=== PATIENT | female | born 1990 | race American Indian/Alaskan Native ===

== ENCOUNTER 2016-06-12 16:05 | Emergency (ER) | payer MEDICAID ==
[2016-06-12 16:25] VITALS: BMI 25.2
[2016-06-12 16:39] VITALS: TEMP 98.5; O2SAT 100
--- NOTE | 2016-06-12 16:58 | C.PDOC ---
History Of Present Illness Patient is a 25 y/o female, whose PMHx includes HTN, and ovarian cyst, that presents to the ED for evaluation of vaginal bleeding for the past 15 days. Patient also reports associated right flank pain. Patient states that she usually gets cramps during her menstrual period. Denies taking any OTC meds for her symptoms. 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 Otherwise, denies any fever, chills, n/v/d, urinary symptoms, light headedness, dizziness, headache, shortness of breath, or any other associated symptoms at this time. Time Seen by Provider: 06/12/16 16:48 Chief Complaint (Nursing): Abdominal Pain History Per: Patient History/Exam Limitations: no limitations Onset/Duration Of Symptoms: Days (15) Quality Of Discomfort: Cramping, "Pain" Associated Symptoms: denies: Fever, Chills, Constipation, Urinary Symptoms Alleviating Factors: None Recent travel outside of the [place]: No Additional History Per: Patient Abnormal Vaginal Bleeding: Yes Past Medical History Reviewed: Historical Data, Nursing Documentation, Vital Signs Vital Signs: Last Vital Signs Temp 98.5 F 06/12/16 16:29 Pulse 92 H 06/12/16 16:29 Resp 17 06/12/16 16:29 BP 149/104 H 06/12/16 16:29 Pulse Ox 100 06/12/16 18:31 - Medical History PMH: HTN Denies: Depression, Chronic Kidney Disease - [facility] Procedures APPLICATION OF SPLINT (09/19/03) INJECT/INFUSE ELECTROLYT (07/22/14) INJECT/INFUSE NEC (07/22/14) MANUAL ASSIST DELIV NEC (09/18/13) OTHER SKIN & SUBQ I D (08/10/13) Family History: States: Unknown Family Hx - Social History Hx Tobacco Use: No Hx Alcohol Use: No Hx Substance Use: No - Immunization History Hx Tetanus Toxoid Vaccination: No Hx Influenza Vaccination: No Hx Pneumococcal Vaccination: No Review Of Systems Constitutional: Negative for: Fever, Chills Cardiovascular: Negative for: Chest Pain, Light Headedness Respiratory: Negative for: Cough, Shortness of Breath Gastrointestinal: Positive for: Abdominal Pain. Negative for: Nausea, Vomiting , Diarrhea, Constipation Genitourinary: Positive for: Vaginal Bleeding. Negative for: Dysuria, Frequency , Incontinence, Hematuria Musculoskeletal: Positive for: Back Pain (right flank) Skin: Negative for: Rash Neurological: Negative for: Weakness, Numbness, Headache, Dizziness Physical Exam - Physical Exam Appears: Non-toxic, No Acute Distress Skin: Normal Color, Warm, Dry Head: Atraumatic, Normacephalic Eye(s): bilateral: Normal Inspection, EOMI Neck: Normal ROM, Supple Chest: Symmetrical Cardiovascular: Rhythm Regular, No Murmur Respiratory: Normal Breath Sounds, No Rales, No Rhonchi, No Wheezing Gastrointestinal/Abdominal: Bowel Sounds (normal), Soft, No Tenderness, No Distention, No Guarding, No Rebound Back: Normal Inspection, No CVA Tenderness, No Vertebral Tenderness, No Paraspinal Tenderness Extremity: Bilateral: Atraumatic, Normal Color And Temperature, Normal ROM Pulses: Left Radial: Normal Neurological/Psych: Oriented x3, Normal Speech Gait: Steady ED Course And Treatment - Laboratory Results Result Diagrams: 06/12/16 17:49 06/12/16 17:49 Lab Interpretation: No Acute Changes O2 Sat by Pulse Oximetry: 100 (RA) Pulse Ox Interpretation: Normal Progress Note: Labs ordered and reviewed. Medical Decision Making Medical Decision Making: Impression: 25 y.o female with vaginal bleeding for 2 weeks Plan: * CBC * CMP * Offer meds, declines states not severe pain Progress: Prior record shows patient was seen 05/10 for abdominal pain with labs and CT A/ P w IV contrast shows mild mural thickening vs underdistention of large bowel. No associated inflammatory stranding. No obstruction. No cholelithiasis, no ductal dilation Labs reviewed H.H WNL, no acute changes from last ER visit. Upon reevaluation patient is resting comfortably in no acute distress. Patient remained afebrile alert and oriented with stable vital signs during ER evaluation. Patient is hemodynamically stable. Discussed results with patient, and copy of report was provided. Will prescribe Provera. Patient feels comfortable going home and will be discharged. Patient given follow up instructions with ob.hose suspender cutter. Instructed to return to ER if symptoms worsen or new symptoms arise. Disposition Counseled Patient/Family Regarding: Need For Followup, Rx Given - [facility]position [facility] Disposition: HOME/ ROUTINE Disposition Time: 18:33 Condition: STABLE Additional Instructions: Your labs are normal. Please follow up with your cementer machine in few days Take medications as prescribed. Return to the emergency department at any time if symptoms persist or worsen. Prescriptions: MedroxyPROGESTERone [Provera] 1 tab PO DAILY #10 tab Instructions: Dysfunctional Uterine Bleeding (ED) - POA Present On Arrival: None - Clinical Impression Clinical Impression: Menorrhagia with regular cycle - PA / WHITE SPOOLER / Resident Statement MD/DO has reviewed & agrees with the documentation as recorded. - Scribe Statement The provider has reviewed the documentation as recorded by the Camposibmiryam Parekh All medical record entries made by the Quinn were at my direction and personally dictated by me. I have reviewed the chart and agree that the record accurately reflects my personal performance of the history, physical exam, medical decision making, and the department course for this patient. I have also personally directed, reviewed, and agree with the discharge instructions and disposition.
[2016-06-12 17:46] LABS: RBC URINE 11 /hpf (0-3); URINE BACTERIA RARE (<OCC); URINE BILIRUBIN NEGATIVE (NEGATIVE); URINE BLOOD 2+ (NEGATIVE); URINE COLOR Yellow (YELLOW); URINE GLUCOSE (UA) NORMAL (Normal); URINE KETONE NEGATIVE (NEGATIVE); URINE LEUKOCYTE ESTERASE NEG Leu/uL (Negative); URINE PROTEIN NEGATIVE (NEGATIVE); URINE UROBILINOGEN NORMAL mg/dL (0.2-1.0); WBC URINE 1 /hpf (0-5)
[2016-06-12 17:55] LABS: BASO % 0.8 % (0.0-2.0); EOS % 0.6 % (0.0-4.0); HEMATOCRIT 38.6 % (34.0-47.0); LYMPH # 1.2 K/uL (1.0-4.3); LYMPH % 51.6 % (20.0-40.0); MEAN CORPUSCULAR HEMOGLOBIN 25.4 pg (27.0-31.0); MEAN PLATELET VOLUME 8.8 fL (7.2-11.7); MONO # 0.2 K/uL (0.0-0.8); MONO % 6.9 % (0.0-10.0); RED CELL DISTRIBUTION WIDTH 13.1 % (11.5-14.5)
[2016-06-12 18:03] LABS: INR 1.2
[2016-06-12 18:04] LABS: MEAN CELL VOLUME 77.1 fL (81.0-99.0); WHITE BLOOD COUNT 2.4 K/uL (4.8-10.8)
[2016-06-12 18:15] LABS: CHLORIDE 101 mmol/L (98-107)
[2016-06-12 18:16] LABS: POTASSIUM 3.4 mmol/L (3.6-5.2); SODIUM 143 mmol/L (132-148)
[2016-06-12 18:18] LABS: ALB/GLOB RATIO 1.2 (1.0-2.1); ALKALINE PHOSPHATASE 43 U/L (38-126); ALT/SGPT 44 U/L (9-52); AST/SGOT 28 U/L (14-36); BLOOD UREA NITROGEN 7 mg/dL (7-17); CARBON DIOXIDE 28 mmol/L (22-30); GFR AFRICAN-AMERICAN > 60; GLUCOSE,RANDOM 79 mg/dL (65-105); TOTAL PROTEIN 8.2 g/dL (6.3-8.3)
[2016-06-12 18:19] LABS: CALCIUM 9.2 mg/dl (8.6-10.4)
[2016-06-12 18:47] VITALS: BP 159/90; PULSE 86; RESP 20
== END 2016-06-12 19:05 | disposition home or self-care (01) ==
LOC: C.ER 16:05
DX: N92.0 Excessive and frequent menstruation with regular cycle (principal)